=== PATIENT | male | born 1965 | race Caucasian/White ===

== ENCOUNTER 2023-10-24 19:15 | Observation (INO) | payer OTHER ==
[2023-10-24] MEDS ORDERED: Insulin Regular 300 UNITS/3 ML VIAL SC PRN (22:01)
[2023-10-24] MEDS ORDERED: Guaifenesin DM 100-10/5 ML UDCUP PO PRN (22:01)
[2023-10-24] MEDS ORDERED: Ondansetron PF 4 MG/2 ML Vial IVP PRN (22:01)
[2023-10-24] MEDS ORDERED: Senokot S 8.6-50 MG TAB PO PRN (22:01)
[2023-10-24] MEDS ORDERED: Dextrose 5% in Water 1,000 ML IV PRN (22:01)
[2023-10-24] MEDS ORDERED: HYDROcodone/Acetaminophen 10/325 mg Tablet PO PRN (22:01)
[2023-10-24] MEDS ORDERED: Glucagon 1 MG/ML KIT IM PRN (22:01)
[2023-10-24] MEDS ORDERED: Acetaminophen 325 MG TAB PO PRN (22:01)
[2023-10-24] MEDS ORDERED: Calcium Carbonate 500 MG ChewTAB PO PRN (22:01)
[2023-10-24] MEDS ORDERED: Dextrose 50% Abboject 50 ML SYRINGE SLOW IVP PRN (22:01)
[2023-10-24] MEDS ORDERED: Nitroglycerin 0.4 MG TAB (25 Tab Bottle) SL PRN (22:05)
[2023-10-24 22:56] VITALS: BMI 24.8
[2023-10-24 22:57] LABS: Troponin I Less than 0.010 ng/mL (< 0.028)
[2023-10-24] MEDS ORDERED: Atorvastatin Calcium 40 MG TAB PO SCH (23:30)
[2023-10-24] MEDS ORDERED: HYDROmorphone 0.5 MG/0.5 ML SYRINGE SLOW IVP SCH (23:30)
[2023-10-24] MEDS ORDERED: Apixaban 5 MG TAB PO SCH (23:30)
[2023-10-24] MEDS ORDERED: Gabapentin 300 MG CAP PO SCH (23:30)
[2023-10-24] MEDS ORDERED: Amitriptyline HCl 25 MG TAB PO SCH (23:30)
[2023-10-25 03:52] LABS: Amphetamine Not Detected (NotDetected); Barbiturates Screen Not Detected (NotDetected); Benzodiazepine Screen Not Detected (NotDetected); Cocaine Metabolite Screen Not Detected (NotDetected); Methadone Not Detected (NotDetected); Methamphetamine Not Detected (NotDetected); Opiate Screen Detected (NotDetected); Oxycodone Screen Not Detected (NotDetected); Phencyclidine (PCP) Not Detected (NotDetected); THC/Cannabinoid Screen Detected (NotDetected); Tricyclic Screen Not Detected (NotDetected)
[2023-10-25] MEDS: Morphine 4 MG/ML VIAL SLOW IVP PRN ×4 (04:03→16:11)
[2023-10-25 05:31] LABS: Anion Gap 13 mmol/L (10-20); BUN (Urea Nitrogen) 14 mg/dL (8.4-25.7); Calc. Creatinine Clearance 88 mL/min (70-130); Calcium 8.5 mg/dL (7.8-10.44); Carbon Dioxide 19 mmol/L (22-29); Chloride 110 mmol/L (98-107); Estimated GFR 92; Glucose 127 mg/dL (70-105); Potassium 4.3 mmol/L (3.5-5.1); Sodium 138 mmol/L (136-145)
[2023-10-25] MEDS ORDERED: Dronabinol 2.5 MG CAP PO SCH (07:30)
[2023-10-25 08:31] VITALS: BP 141/63; TEMP 97.7
[2023-10-25] MEDS ORDERED: Famotidine 20 MG TAB PO SCH (09:00)
[2023-10-25] MEDS ORDERED: Gabapentin 300 MG CAP PO SCH (09:00)
[2023-10-25] MEDS ORDERED: Isosorbide Mononitrate 30 MG ER.TAB PO SCH (09:00)
[2023-10-25] MEDS ORDERED: Empagliflozin 10 MG TAB PO SCH (09:00)
[2023-10-25] MEDS ORDERED: Apixaban 5 MG TAB PO SCH (09:00)
[2023-10-25] MEDS ORDERED: Aspirin 81 mg Enteric Coated Tablet PO SCH (09:00)
[2023-10-25] MEDS ORDERED: Ezetimibe 10 MG TAB PO SCH (09:00)
[2023-10-25] MEDS ORDERED: Clopidogrel Bisulfate 75 MG TAB PO SCH (09:00)
[2023-10-25] MEDS ORDERED: FLU VACC QS2023-24(6MOS UP)/PF 60 MCG/0.5 ML SYRINGE IM ONE (09:15)
[2023-10-25] MEDS ORDERED: Amitriptyline HCl 25 MG TAB PO SCH (21:00)
[2023-10-25] MEDS ORDERED: Atorvastatin Calcium 40 MG TAB PO SCH (21:00)
== END 2023-10-25 16:17 | disposition home or self-care (01) ==
LOC: CSHTELE 21:23
PROVIDERS: ADMIT Hospitalist; ATTEND Hospitalist
DX: R07.9 Chest pain, unspecified (principal); R07.2 Precordial pain; I44.7 Left bundle-branch block, unspecified; F25.0 Schizoaffective disorder, bipolar type; I25.10 Atherosclerotic heart disease of native coronary artery without angina pectoris; I73.9 Peripheral vascular disease, unspecified; R91.1 Solitary pulmonary nodule; I70.1 Atherosclerosis of renal artery; I11.0 Hypertensive heart disease with heart failure; I50.20 Unspecified systolic (congestive) heart failure; E11.42 Type 2 diabetes mellitus with diabetic polyneuropathy; I82.409 Acute embolism and thrombosis of unspecified deep veins of unspecified lower extremity; I25.5 Ischemic cardiomyopathy; F12.10 Cannabis abuse, uncomplicated; E78.5 Hyperlipidemia, unspecified; G89.4 Chronic pain syndrome; Q27.1 Congenital renal artery stenosis; Z79.82 Long term (current) use of aspirin; Z79.84 Long term (current) use of oral hypoglycemic drugs; Z79.01 Long term (current) use of anticoagulants; Z79.899 Other long term (current) drug therapy; Z90.49 Acquired absence of other specified parts of digestive tract; Z98.890 Other specified postprocedural states; Z87.891 Personal history of nicotine dependence; Z88.0 Allergy status to penicillin; Z88.1 Allergy status to other antibiotic agents; Z88.5 Allergy status to narcotic agent
CPT/HCPCS: 80048; 80306; 82962; 83880; 84484; 86140; 93306; 96374; 96375; 96376; G0378 ×2; 36415; 36416; J1170; J2270; J2405; Q0167